=== PATIENT | male | born 1985 | race Caucasian/White ===

== ENCOUNTER 2016-08-24 10:51 | Emergency (ER) | payer OTHER ==
[~2016-08-24] VITALS: Ht 170.2 cm; Wt 76.2 kg
[~2016-08-24 10:51] MED LIST: AUGMENTIN 875 M1 TAB PO; MOTRIN800 MG PO
[2016-08-24 10:55] VITALS: BP 138/92
--- NOTE | 2016-08-24 11:07 | NUR ---
MD IN TRIAGE , EVALUATING PT. DISCHARGE FROM TRIAGE
[2016-08-24 11:11] VITALS: BP 132/91
== END 2016-08-24 11:07 | disposition home or self-care (01) ==
LOC: MED 10:51
DX: S81.801A Unspecified open wound, right lower leg, initial encounter (principal); R03.0 Elevated blood-pressure reading, without diagnosis of hypertension; W26.8XXA Contact with other sharp object(s), not elsewhere classified, initial encounter; Y93.89 Activity, other specified; Y92.89 Other specified places as the place of occurrence of the external cause; Y99.8 Other external cause status

== ENCOUNTER 2019-02-21 21:33 | Emergency (ER) | payer OTHER ==
[~2019-02-21] VITALS: Ht 165.1 cm; Wt 74.8 kg
[~2019-02-21 21:33] MED LIST changes: +AMOX-842 PO; -AUGMENTIN 875 M1 TAB PO; +IBUP-974 PO; -MOTRIN800 MG PO
[2019-02-21 21:36] VITALS: BP 125/89
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
[2019-02-21] MEDS ORDERED: KETOROLAC 30 MG/ML VIAL IVP ONE (22:00)
[2019-02-21] MEDS ORDERED: IBUPROFEN 600 MG TAB PO ONE (22:05)
--- NOTE | 2019-02-21 22:29 | NUR ---
XRAY AT BEDSIDE.
--- NOTE | 2019-02-21 22:50 | NUR ---
PT STATES RELIEF OF PAIN. 04/09 AT THIS TIME.
--- NOTE | 2019-02-21 23:05 | NUR ---
Patient discharged with v/s stable. Written and verbal after care instructions given and explained. Patient alert, oriented and verbalized understanding of instructions. Ambulatory with steady gait. All questions addressed prior to discharge. ID band removed. Patient advised to follow up with PMD. Rx of NAPROSYN AND KEFLEX given. Patient educated on indication of medication including possible reaction and side effects. Opportunity to ask questions provided and answered. DISCHARGED BY DR AUSTIN
[2019-02-21 23:06] VITALS: BP 125/89
== END 2019-02-21 23:02 | disposition home or self-care (01) ==
LOC: MED 21:33
DX: S70.02XA Contusion of left hip, initial encounter (principal); S30.811A Abrasion of abdominal wall, initial encounter; Z79.899 Other long term (current) drug therapy; V86.96XA Unspecified occupant of dirt bike or motor/cross bike injured in nontraffic accident, initial encounter; Y93.89 Activity, other specified; Y92.89 Other specified places as the place of occurrence of the external cause; Y99.8 Other external cause status
CPT/HCPCS: 73501; 99283; Q0092; J1885